=== PATIENT | female | born 1965 | race African-American/Black ===

== ENCOUNTER 2016-05-31 08:46 | Emergency (ER) | payer OTHER ==
[~2016-05-31] VITALS: Ht 162.6 cm; Wt 70.0 kg
[~2016-05-31 08:46] MED LIST: AZOR 5/20 MG1 TABLET PO; BACTRIM,SEPT1 TABLET PO; BENTYL10 MG PO; BENTYL20 MG PO; CHOLESTYRAMINE P4 GM PO; CITRATE OF MAG296 ML PO; COMPAZINE10 MG PO; CYMBALTA30 MG PO; CYMBALTA60 MG PO; DILAUDID PO; DILAUDID2 MG PO; DILAUDID8 MG PO; FERROUS SULFAT325 MG PO; FLOVENT 11120 INHALA IH; FLOVENT DISKUS1 DISK IH; KEFLEX500 MG PO; LOPERAMIDE2 MG PO; LOTREL 5/201 CAPSULE PO; LYRICA100 MG PO; MACROBID100 MG PO; MEDROL DOSEPAK4 MG PO; METOPROLOL TAR100 MG PO; METRONIDAZOLE500 MG PO; MORPHINE SULFAT15 M1 PO; MORPHINE SULFAT15 MG PO; MORPHINE SULFAT30 M1 PO; MORPHINE SULFAT30 M2 PO; NEURONTIN300 MG PO; NITROFURANTOIN100 MG PO; PANTOPRAZOLE SO40 MG PO; PHENERGAN25 MG PR; PLAQUENIL200 MG PO; PREDNISONE20 MG PO; PREDNISONE5 MG PO; PROTONIX40 MG PO; RAYOS5 MG PO; TOPROL XL25 MG PO; TRAZODONE HCL50 MG PO; ZOFRAN4 MG PO
[2016-05-31 09:58] LABS: EOSINOPHIL (%) 0.2 % (0-5); HEMATOCRIT 41.2 % (36.0-46.0); IMMATURE GRANULOCYTE (%) 0.3 % (0.0-0.7); LYMPHOCYTE COUNT 1.4 K/uL (1.0-2.8); MCH 29.5 PG (29.0-34.0); MCV 92.2 FL (83-99); MEAN PLAT.VOLUME 12.4 uM^3 (9.5-12.4); MONOCYTE (%) 10.9 % (3-12); MONOCYTE COUNT 0.7 K/uL (0-0.8); NEUTROPHIL (%) 64.9 % (45-76); PLATELET COUNT 238 K/uL (156-360); RBC DIS.WIDTH-CV 14.2 % (11.8-14.6); RBC DIS.WIDTH-SD 47.8 % (39-53); RED BLOOD COUNT 4.47 M/uL (3.80-5.20); WHITE BLOOD COUNT 6.2 K/uL (4.1-10.2)
[2016-05-31 10:09] LABS: CHLORIDE 105 mEq/L (99-109); POTASSIUM 3.1 mEq/L (3.7-5.4); SODIUM 144 mEq/L (136-147)
[2016-05-31 10:11] LABS: GLUCOSE 75 mg/dL (70-99)
[2016-05-31 10:12] LABS: ANION GAP 12 MEQ/L (2-14)
[2016-05-31 10:13] LABS: TOTAL BILIRUBIN 0.4 mg/dL (0.0-1.0)
[2016-05-31 10:14] LABS: ALKALINE PHOSPHATASE 73 IU/L (3-129)
[2016-05-31 10:15] LABS: GFR ESTIMATE (CALCULATED) > 59 mL/min/
[2016-05-31 10:16] LABS: DIRECT BILIRUBIN 0.2 mg/dL (0.0-0.3); UREA NITROGEN (BUN) 12 mg/dL (9-23)
[2016-05-31 10:18] LABS: LIPASE 31 U/L (1.0-51.0)
[2016-05-31 10:19] LABS: TROP-I INTERPRETATION NEGATIVE; TROPONIN-I < 0.01 ng/mL (0.0-0.30)
[2016-05-31 10:56] LABS: ADD MIUA? YES; BILIRUBIN NEGATIVE; BLOOD NEGATIVE; COLOR AMBER ((YELLOW)); GLUCOSE (STRIP) NEGATIVE; KETONES 5; LEUKOCYTES MODERATE; NITRITE NEGATIVE; PROTEIN (STRIP) 30; SPECIFIC GRAVITY 1.026 (1.000-1.030); UROBILINOGEN 0.2 MG/DL (0.2-1.0)
[2016-05-31 11:09] LABS: EPITHELIAL CELLS RARE /HPF; MUCUS 2+ /LPF; RED BLOOD CELLS NONE SEEN /HPF (0-5)
[2016-05-31 11:10] LABS: BACTERIA 1+ /HPF; UCUL ADDED? NO
[2016-05-31 11:14] LABS: INFLUENZA A VIRAL ANTIGEN NEGATIVE; INFLUENZA B VIRAL ANTIGEN NEGATIVE
[2016-05-31] MEDS ORDERED: NAPROSYN500 MG PO (12:17)
[2016-05-31] MEDS ORDERED: PERCOCET 5/31 TABLET PO (12:18)
[2016-05-31] MEDS ORDERED: FOLIC ACID1 MG PO (12:32)
[2016-05-31 12:43] VITALS: BP 122/98
== END 2016-05-31 12:47 | disposition home or self-care (01) ==
LOC: EME 08:46
PROVIDERS: Emergency Medicine
DX: R53.1 Weakness (principal); M32.9 Systemic lupus erythematosus, unspecified; E87.6 Hypokalemia; J45.909 Unspecified asthma, uncomplicated; G89.29 Other chronic pain; M79.7 Fibromyalgia; I10 Essential (primary) hypertension; K21.9 Gastro-esophageal reflux disease without esophagitis; Z96.653 Presence of artificial knee joint, bilateral
CPT/HCPCS: 71020; 80048; 80076; 81003; 83605; 83690; 84484; 85025; 87040; 87086; 87502; 99281; 99285; J1885; J7030

== ENCOUNTER 2016-06-06 09:09 | Emergency (ER) | payer OTHER ==
[~2016-06-06] VITALS: Ht 162.6 cm; Wt 72.6 kg
[~2016-06-06 09:09] MED LIST changes: +FOLIC ACID1 MG PO; +NAPROSYN500 MG PO; +PERCOCET 5/31 TABLET PO
[2016-06-06 09:46] LABS: HEMATOCRIT 35.2 % (36.0-46.0); MCH 29.9 PG (29.0-34.0); MCHC 32.4 G/DL (30.0-36.0); MCV 92.4 FL (83-99); RBC DIS.WIDTH-CV 14.1 % (11.8-14.6); RBC DIS.WIDTH-SD 47.7 % (39-53); RED BLOOD COUNT 3.81 M/uL (3.80-5.20); WHITE BLOOD COUNT 7.7 K/uL (4.1-10.2)
[2016-06-06 09:59] LABS: CHLORIDE 105 mEq/L (99-109); POTASSIUM 3.5 mEq/L (3.7-5.4); SODIUM 143 mEq/L (136-147)
[2016-06-06 10:01] LABS: GLUCOSE 114 mg/dL (70-99)
[2016-06-06 10:02] LABS: ANION GAP 10 MEQ/L (2-14)
[2016-06-06 10:04] LABS: ALKALINE PHOSPHATASE 66 IU/L (3-129); TOTAL BILIRUBIN 0.3 mg/dL (0.0-1.0)
[2016-06-06 10:05] LABS: GFR ESTIMATE (CALCULATED) > 59 mL/min/
[2016-06-06 10:06] LABS: UREA NITROGEN (BUN) 9 mg/dL (9-23)
[2016-06-06 10:08] LABS: LIPASE 16 U/L (1.0-51.0)
[2016-06-06 10:14] LABS: QUANTITATIVE HCG < 4.0 MIU/ML
[2016-06-06 10:31] LABS: MEAN PLAT.VOLUME 12.8 uM^3 (9.5-12.4); PLATELET COUNT 225 K/uL (156-360)
[2016-06-06 11:20] LABS: ADD MIUA? YES; BILIRUBIN NEGATIVE; BLOOD NEGATIVE; COLOR YELLOW ((YELLOW)); GLUCOSE (STRIP) NEGATIVE; KETONES NEGATIVE; LEUKOCYTES TRACE; NITRITE NEGATIVE; PROTEIN (STRIP) 30; UROBILINOGEN 0.2 MG/DL (0.2-1.0)
[2016-06-06 11:25] LABS: BACTERIA NONE SEEN /HPF; EPITHELIAL CELLS RARE /HPF; MUCUS TRACE /LPF; UCUL ADDED? NO; WHITE BLOOD CELLS 0-5 /HPF (0-5)
[2016-06-06 11:48] VITALS: BP 127/54
== END 2016-06-06 11:50 | disposition home or self-care (01) ==
LOC: EME 09:09
DX: R10.9 Unspecified abdominal pain (principal); K59.00 Constipation, unspecified; M32.9 Systemic lupus erythematosus, unspecified; I10 Essential (primary) hypertension; K21.9 Gastro-esophageal reflux disease without esophagitis; G89.29 Other chronic pain; Z88.1 Allergy status to other antibiotic agents; Z88.2 Allergy status to sulfonamides
CPT/HCPCS: 74177; 80053; 81003; 83690; 84702; 85027; 99281; 99284; J2270; J2405; J7030

== ENCOUNTER 2016-08-01 17:09 | Emergency (ER) | payer OTHER ==
[~2016-08-01] VITALS: Ht 162.6 cm; Wt 66.9 kg
[2016-08-01 18:18] LABS: HEMATOCRIT 37.1 % (36.0-46.0); MCH 29.4 PG (29.0-34.0); MCHC 32.6 G/DL (30.0-36.0); MCV 90.3 FL (83-99); MEAN PLAT.VOLUME 11.6 uM^3 (9.5-12.4); PLATELET COUNT 302 K/uL (156-360); RBC DIS.WIDTH-CV 14.2 % (11.8-14.6); RBC DIS.WIDTH-SD 45.9 % (39-53); RED BLOOD COUNT 4.11 M/uL (3.80-5.20); WHITE BLOOD COUNT 5.6 K/uL (4.1-10.2)
[2016-08-01 18:26] LABS: CHLORIDE 107 mEq/L (99-109); POTASSIUM 3.4 mEq/L (3.7-5.4); SODIUM 145 mEq/L (136-147)
[2016-08-01 18:28] LABS: GLUCOSE 94 mg/dL (70-99)
[2016-08-01 18:30] LABS: ANION GAP 11 MEQ/L (2-14); TOTAL BILIRUBIN 0.4 mg/dL (0.0-1.0)
[2016-08-01 18:32] LABS: ALKALINE PHOSPHATASE 71 IU/L (3-129); GFR ESTIMATE (CALCULATED) > 59 mL/min/
[2016-08-01 18:33] LABS: UREA NITROGEN (BUN) 9 mg/dL (9-23)
[2016-08-01 18:35] LABS: LIPASE 23 U/L (1.0-51.0)
[2016-08-01 18:42] LABS: QUANTITATIVE HCG < 4.0 MIU/ML
[2016-08-01 21:23] LABS: ADD MIUA? YES; BILIRUBIN NEGATIVE; BLOOD NEGATIVE; COLOR STRAW ((YELLOW)); GLUCOSE (STRIP) NEGATIVE; KETONES 5; LEUKOCYTES SMALL; NITRITE NEGATIVE; PROTEIN (STRIP) NEGATIVE; SPECIFIC GRAVITY 1.043 (1.000-1.030); UROBILINOGEN 0.2 MG/DL (0.2-1.0)
[2016-08-01 21:27] LABS: BACTERIA NONE SEEN /HPF; EPITHELIAL CELLS RARE /HPF; MUCUS NONE SEEN /LPF; RED BLOOD CELLS 0-5 /HPF (0-5); UCUL ADDED? NO; WHITE BLOOD CELLS 0-5 /HPF (0-5)
[2016-08-01 22:11] VITALS: BP 128/93
== END 2016-08-01 22:11 | disposition home or self-care (01) ==
LOC: EME 17:09
PROVIDERS: Emergency Medicine
DX: K52.9 Noninfective gastroenteritis and colitis, unspecified (principal); I10 Essential (primary) hypertension; J45.909 Unspecified asthma, uncomplicated
CPT/HCPCS: 74177; 80053; 81003; 83690; 84702; 85027; 99281; 99285; J2270; J2405; J7030

== ENCOUNTER 2016-09-29 22:36 | Emergency (ER) | payer OTHER ==
[~2016-09-29] VITALS: Ht 162.6 cm; Wt 64.9 kg
[2016-09-29 22:54] VITALS: BP 102/65
[2016-09-29 23:27] LABS: MCH 29.6 PG (29.0-34.0); MCHC 32.8 G/DL (30.0-36.0); MCV 90.3 FL (83-99); RBC DIS.WIDTH-CV 14.9 % (11.8-14.6); RBC DIS.WIDTH-SD 49.6 % (39-53); RED BLOOD COUNT 4.43 M/uL (3.80-5.20); WHITE BLOOD COUNT 7.9 K/uL (4.1-10.2)
[2016-09-29 23:35] LABS: CHLORIDE 104 mEq/L (99-109); POTASSIUM 3.2 mEq/L (3.7-5.4); SODIUM 140 mEq/L (136-147)
[2016-09-29 23:36] LABS: GLUCOSE 126 mg/dL (70-99)
[2016-09-29 23:38] LABS: ANION GAP 10 MEQ/L (2-14)
[2016-09-29 23:40] LABS: GFR ESTIMATE (CALCULATED) > 59 mL/min/
[2016-09-29 23:41] LABS: UREA NITROGEN (BUN) 17 mg/dL (9-23)
[2016-09-29 23:47] LABS: TROP-I INTERPRETATION NEGATIVE; TROPONIN-I < 0.01 ng/mL (0.0-0.30)
[2016-09-30 01:02] LABS: PLAT.SUFFICIENCY ADEQUATE
[2016-09-30 01:03] LABS: PLATELET CLUMPS PRESENT
== END 2016-09-29 23:17 | disposition left against medical advice (07) ==
LOC: EME 22:36
DX: R06.00 Dyspnea, unspecified (principal); Z53.21 Procedure and treatment not carried out due to patient leaving prior to being seen by health care provider
CPT/HCPCS: 80048; 84484; 85027; 93005

== ENCOUNTER 2016-12-11 13:58 | Emergency (ER) | payer OTHER ==
[~2016-12-11] VITALS: Ht 162.6 cm; Wt 67.2 kg
[2016-12-11 15:31] LABS: ADD MIUA? YES; BILIRUBIN NEGATIVE; BLOOD NEGATIVE; COLOR AMBER ((YELLOW)); GLUCOSE (STRIP) NEGATIVE; KETONES NEGATIVE; LEUKOCYTES NEGATIVE; NITRITE POSITIVE; PROTEIN (STRIP) NEGATIVE
[2016-12-11 15:35] LABS: BACTERIA NONE SEEN /HPF; EPITHELIAL CELLS RARE /HPF; HYALINE CASTS 0-5 /LPF; MUCUS TRACE /LPF; WHITE BLOOD CELLS 0-5 /HPF (0-5)
[2016-12-11 15:38] LABS: MCH 30.4 PG (29.0-34.0); MCHC 32.9 G/DL (30.0-36.0); MCV 92.4 FL (83-99); RBC DIS.WIDTH-CV 14.6 % (11.8-14.6); RBC DIS.WIDTH-SD 49.3 % (39-53); RED BLOOD COUNT 3.68 M/uL (3.80-5.20); WHITE BLOOD COUNT 6.7 K/uL (4.1-10.2)
[2016-12-11 15:42] LABS: MEAN PLAT.VOLUME 12.3 uM^3 (9.5-12.4); PLATELET COUNT 206 K/uL (156-360)
[2016-12-11 15:48] LABS: CHLORIDE 107 mEq/L (99-109); POTASSIUM 3.1 mEq/L (3.7-5.4)
[2016-12-11 15:49] LABS: SODIUM 140 mEq/L (136-147)
[2016-12-11 15:50] LABS: GLUCOSE 60 mg/dL (70-99)
[2016-12-11 15:52] LABS: ANION GAP 7 MEQ/L (2-14)
[2016-12-11 15:54] LABS: GFR ESTIMATE (CALCULATED) > 59 mL/min/
[2016-12-11 15:55] LABS: UREA NITROGEN (BUN) 12 mg/dL (9-23)
[2016-12-11 15:57] LABS: CREATINE KINASE 141 IU/L (1-294)
[2016-12-11] MEDS ORDERED: INDOCIN50 MG PO (19:55)
[2016-12-11] MEDS ORDERED: VALIUM5 MG PO (19:55)
[2016-12-11] MEDS ORDERED: KEFLEX500 MG PO (19:55)
[2016-12-11 21:22] VITALS: BP 144/83
== END 2016-12-11 21:23 | disposition home or self-care (01) ==
LOC: EME 13:58
PROVIDERS: Physician Assistant
DX: R07.81 Pleurodynia (principal); M54.6 Pain in thoracic spine; M32.9 Systemic lupus erythematosus, unspecified; N39.0 Urinary tract infection, site not specified; R91.1 Solitary pulmonary nodule; R79.1 Abnormal coagulation profile; I10 Essential (primary) hypertension; J45.909 Unspecified asthma, uncomplicated
CPT/HCPCS: 71020; 71275; 80048; 81003; 82550; 85027; 85379; 87086; 99281; 99285; J0696; J1885; J3010; J7030; J7050

== ENCOUNTER 2017-06-24 10:11 | Emergency (ER) | payer OTHER ==
[~2017-06-24] VITALS: Ht 162.6 cm; Wt 66.1 kg
[~2017-06-24 10:11] MED LIST changes: +INDOCIN50 MG PO; +VALIUM5 MG PO
[2017-06-24] MEDS ORDERED: VITAMIN D2000 UNI1 PO (11:40)
[2017-06-24] MEDS ORDERED: METHOTREXATE2.5 MG PO ×2 (11:40→11:45)
[2017-06-24] MEDS ORDERED: VITAMIN D22000 UNIT PO (11:46)
[2017-06-24 11:48] LABS: MCH 30.1 PG (29.0-34.0); MCHC 33.3 G/DL (30.0-36.0); MCV 90.4 FL (83-99); PLATELET COUNT 192 K/uL (156-360); RBC DIS.WIDTH-CV 14.3 % (11.8-14.6); RBC DIS.WIDTH-SD 47.1 % (39-53); RED BLOOD COUNT 3.65 M/uL (3.80-5.20); WHITE BLOOD COUNT 6.1 K/uL (4.1-10.2)
[2017-06-24 11:56] LABS: ALBUMIN 3.7 g/dL (3.2-4.8)
[2017-06-24 11:57] LABS: CHLORIDE 103 mEq/L (99-109); POTASSIUM 3.9 mEq/L (3.7-5.4); SODIUM 140 mEq/L (136-147)
[2017-06-24 11:59] LABS: GLUCOSE 88 mg/dL (70-99); TOTAL PROTEIN 7.3 g/dL (6.4-8.3)
[2017-06-24 12:01] LABS: TOTAL BILIRUBIN 0.5 mg/dL (0.0-1.0)
[2017-06-24 12:02] LABS: ALKALINE PHOSPHATASE 100 IU/L (3-129)
[2017-06-24 12:03] LABS: CREATININE 0.8 mg/dL (0.6-1.3); GFR ESTIMATE (CALCULATED) > 59 mL/min/
[2017-06-24 12:04] LABS: AST (GOT) 25 IU/L (2-34); UREA NITROGEN (BUN) 10 mg/dL (9-23)
[2017-06-24 12:06] LABS: ALT (GPT) 25 IU/L (3-49)
[2017-06-24 13:28] LABS: APPEARANCE CLEAR ((CLEAR)); BILIRUBIN NEGATIVE; BLOOD SMALL; COLOR YELLOW ((YELLOW)); GLUCOSE (STRIP) NEGATIVE; KETONES NEGATIVE; LEUKOCYTES MODERATE; NITRITE NEGATIVE; PROTEIN (STRIP) NEGATIVE; SPECIFIC GRAVITY 1.016 (1.000-1.030); UROBILINOGEN 0.2 MG/DL (0.2-1.0)
[2017-06-24 13:34] LABS: BACTERIA NONE SEEN /HPF; EPITHELIAL CELLS RARE /HPF; HYALINE CASTS 0-5 /LPF; MUCUS TRACE /LPF; UCUL ADDED? YES
[2017-06-24] MEDS ORDERED: BENTYL20 MG PO (13:42)
[2017-06-24 13:57] VITALS: BP 110/76
== END 2017-06-24 13:58 | disposition home or self-care (01) ==
LOC: EME 10:11
PROVIDERS: Nurse Practitioner Family
DX: K59.00 Constipation, unspecified (principal); M32.9 Systemic lupus erythematosus, unspecified; M54.5 Low back pain; I10 Essential (primary) hypertension; J45.909 Unspecified asthma, uncomplicated; G89.29 Other chronic pain; Z79.891 Long term (current) use of opiate analgesic; Z96.653 Presence of artificial knee joint, bilateral; Z90.710 Acquired absence of both cervix and uterus; Z88.2 Allergy status to sulfonamides; Z88.1 Allergy status to other antibiotic agents
CPT/HCPCS: 74176; 80053; 81003; 85027; 87086; 99281; 99284; J1885

== ENCOUNTER 2017-09-01 21:31 | Emergency (ER) | payer OTHER ==
[~2017-09-01] VITALS: Ht 162.6 cm; Wt 63.6 kg
[~2017-09-01 21:31] MED LIST changes: +METHOTREXATE2.5 MG PO; +VITAMIN D2000 UNI1 PO; +VITAMIN D22000 UNIT PO
[2017-09-01 22:07] LABS: HEMATOCRIT 35.4 % (36.0-46.0); MCH 30.2 PG (29.0-34.0); MCHC 33.9 G/DL (30.0-36.0); MCV 88.9 FL (83-99); RBC DIS.WIDTH-CV 14.4 % (11.8-14.6); RBC DIS.WIDTH-SD 46.7 % (39-53); RED BLOOD COUNT 3.98 M/uL (3.80-5.20); WHITE BLOOD COUNT 4.4 K/uL (4.1-10.2)
[2017-09-01 22:20] LABS: ALBUMIN 4.2 g/dL (3.2-4.8); CHLORIDE 106 mEq/L (99-109); POTASSIUM 3.7 mEq/L (3.7-5.4); SODIUM 144 mEq/L (136-147)
[2017-09-01 22:23] LABS: GLUCOSE 104 mg/dL (70-99)
[2017-09-01 22:26] LABS: ALKALINE PHOSPHATASE 105 IU/L (3-129); GFR ESTIMATE (CALCULATED) > 59 mL/min/
[2017-09-01 22:27] LABS: UREA NITROGEN (BUN) 11 mg/dL (9-23)
[2017-09-01 22:28] LABS: AST (GOT) 37 IU/L (2-34)
[2017-09-01 22:29] LABS: ALT (GPT) 47 IU/L (3-49)
[2017-09-01 22:36] LABS: QUANTITATIVE HCG < 4.0 MIU/ML
[2017-09-01 22:45] LABS: TOTAL BILIRUBIN 0.4 mg/dL (0.0-1.0)
[2017-09-01 22:48] LABS: CREATINE KINASE 137 IU/L (1-294); LIPASE 37 U/L (1.0-51.0)
[2017-09-01 22:49] LABS: PLAT.SUFFICIENCY ADEQUATE; PLATELET COUNT 216 K/uL (156-360)
[2017-09-02 00:32] LABS: APPEARANCE CLEAR ((CLEAR)); BILIRUBIN NEGATIVE; BLOOD NEGATIVE; COLOR STRAW ((YELLOW)); GLUCOSE (STRIP) NEGATIVE; KETONES NEGATIVE; LEUKOCYTES NEGATIVE; NITRITE NEGATIVE; PROTEIN (STRIP) NEGATIVE; SPECIFIC GRAVITY 1.005 (1.000-1.030); UCUL ADDED? NO; UROBILINOGEN 0.2 MG/DL (0.2-1.0)
[2017-09-02 02:24] VITALS: BP 112/50
== END 2017-09-02 02:26 | disposition home or self-care (01) ==
LOC: EME 21:31 → EXP 21:31
DX: R53.1 Weakness (principal); M32.9 Systemic lupus erythematosus, unspecified; I10 Essential (primary) hypertension; K21.9 Gastro-esophageal reflux disease without esophagitis; J45.909 Unspecified asthma, uncomplicated; M79.7 Fibromyalgia; M19.90 Unspecified osteoarthritis, unspecified site; F41.9 Anxiety disorder, unspecified; F32.9 Major depressive disorder, single episode, unspecified; Z96.653 Presence of artificial knee joint, bilateral; Z90.710 Acquired absence of both cervix and uterus; Z88.2 Allergy status to sulfonamides; Z88.1 Allergy status to other antibiotic agents; Z88.8 Allergy status to other drugs, medicaments and biological substances
CPT/HCPCS: 80053; 81003; 82550; 83690; 84702; 85027; 93005; 99281; 99284; J1100; J1885; J2405; J7030